=== PATIENT | male | born 1980 | race Two or more races ===

== ENCOUNTER 2024-08-15 18:39 | Emergency (ER) | payer MEDICAID, OTHER ==
[~2024-08-15] VITALS: Ht 182.9 cm; Wt 143.0 kg
--- NOTE | 2024-08-15 19:13 | ED.PDOC ---
Psychiatric HPI Comments 44 y/o M, presents to the ED for CC of mental health/ETOH. Patient states, that he has been having suicidal ideations x1day. 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 Patient endorses, drinking x4 tall cans of beer and having been binge drinking since Monday (08/11/24). Patient denies visual hallucinations, homicidal ideations, any prior suicidal attempt or plan. No other symptoms or modifying factors present at this time. Time Seen by MD: 19:10 Reviewed Notes: Nurses Notes, Medications, Allergies Information Source: Patient Mode of Arrival: Ambulatory Severity: Able to Care for Self Severity of Pain: None Severity of Mental Status: Severe Severity of Symptoms: Severe Timing: Hours Duration: Since onset Presents with: Suicidal Ideation, Alcohol Intoxication Ingestion: ETOH Current substance abuse: ETOH Stressors: None History of: None Location: None Location of pain or injury: None Associated signs and symptoms: ETOH Past Medical History PAST MEDICAL HISTORY: Denies Surgical History: Denies all surgeries Family History Family History: Unknown Social History Smoker: Non-Smoker Alcohol: Heavy Drugs: Denies Drug Use Lives In: Home Constitutional: denies: chills, diaphoresis, fatigue, fever, malaise, sweats, weakness, others EENTM: denies: blurred vision, double vision, ear bleeding, ear discharge, ear drainage, ear pain, ear ringing, eye pain, eye redness, hearing loss, mouth pain, mouth swelling, nasal discharge, nose bleeding, nose congestion, nose pain, photophobia, tearing, throat pain, throat swelling, voice changes, others Respiratory: denies: cough, hemoptysis, orthopnea, SOB at rest, shortness of breath, SOB with excertion, stridor, wheezing, others Cardiovascular: denies: chest pain, dizzy spells, diaphoresis, Dyspnea on e xertion, edema, irregular heart beat, left arm pain, lightheadedness, palpitations, PND, syncope, others Gastrointestinal: denies: abdomen distended, abdominal pain, blood streaked bowels, constipated, diarrhea, dysphagia, difficulty swallowing, hematemesis, melena, nausea, poor appetite, poor fluid intake, rectal bleeding, rectal pain, vomiting, others Genitourinary: denies: burning, dysuria, flank pain, frequency, hematuria, incontinence, penile discharge, penile sore, pain, testicle pain, testicle swelling, urgency, others Neurological: denies: dizziness, fainting, headache, left sided numbness, left sided weakness, numbness, paresthesia, pre-existing deficit, right sided numbness, right sided weakness, seizure, speech problems, tingling, tremors, weakness, others Musculoskeletal: denies: back pain, gout, joint pain, joint swelling, muscle pain, muscle stiffness, neck pain, others Integumetry: denies: bruises, change in color, change in hair/nails, dryness, laceration, lesions, lumps, rash, wounds, others Allergic/Immunocompromised: denies: Difficulty Healing, Frequent Infections, Hives, Itching, others Hematologic/Lymphatic: denies: anemia, blood clots, easy bleeding, easy bruising, swollen glands, others Endocrine: denies: excessive hunger, excessive sweating, excessive thirst, excessive urination, flushing, intolerance to cold, intolerance to heat, unexplained weight gain, unexplained weight loss, others Psychiatric: reports: suicidal; denies: anxiety, bipolar disorder, depression, hopeless, panic disorder, schizophrenia, sleepless, others Physical Exam General Appearance: No Apparent Distress, Normal HEENT: Normal ENT Inspection, Pharynx Normal, TMs Normal Neck: Full Range of Motion, Non-Tender, Normal, Normal Inspection Respiratory: Chest Non-Tender, Lungs Clear, No Accessory Muscle Use, No Respiratory Distress, Normal Breath Sounds Cardiovascular: No Edema, No JVD, No Murmur, No Gallop, Normal Peripheral Pulses, Regular Rate/Rhythm Breast Exam: Deferred Gastrointestinal: No Organomegaly, Non Tender, No Pulsatile Mass, Normal Bowel Sounds, Soft Genitalia: Deferred Pelvic: Deferred Rectal: Deferred Extremities: No calf tenderness, Normal capillary refill, Normal inspection, Normal range of motion, Non-tender, No pedal edema Musculoskeletal : Apperance: Normal Neurologic: Depressed Affect Cerebellar Function: Normal Reflexes: Normal Skin: Dry, Normal Color, Warm Lymphatic: No Adenopathy Was a procedure done? Was a procedure done?: No Psych Differential Dx Psych. Differential Dx: Anxiety, Depression, Hopeless OD Differential Dx: Alcohol Abuse X-Ray, Labs, Meds, VS Vital Signs Date Time Temp Pulse Resp B/P (MAP) Pulse Ox O2 Delivery O2 Flow Rate FiO2 4/3/25 19:35 98.1 96 20 134/104 (114) 96 98.1 08/15/24 19:35 96 20 96 Room Air* 0 21 08/15/24 19:10 98.1 96 20 134/104 (114) 96 98.1 Lab Test 08/15/24 19:25 Range/Units White Blood Count 12.5 H 4.4-10.8 10^3/uL Red Blood Count 5.29 4.5-5.90 10^6/uL Hemoglobin 13.9 13.5-17.5 g/dL Hematocrit 41.3 41.0-53.0 % Mean Corpuscular Volume 78.1 L 80.0-100.0 fL Mean Corpuscular Hemoglobin 26.2 L 28.0-32.0 pg Mean Corpuscular Hemoglobin Concent 33.5 32.0-36.0 g/dL Red Cell Distribution Width 15.8 H 11.8-14.3 % Platelet Count 272 140-450 10^3/uL Mean Platelet Volume 8.8 6.9-10.8 fL Neutrophils (%) (Auto) 47.5 37.0-80.0 % Lymphocytes (%) (Auto) 43.5 10.0-50.0 % Monocytes (%) (Auto) 6.0 0.0-12.0 % Eosinophils (%) (Auto) 2.8 0.0-7.0 % Basophils (%) (Auto) 0.2 0.0-2.0 % Neutrophils # (Auto) 5.9 1.6-8.6 10 ^3/uL Lymphocytes # (Auto) 5.4 0.4-5.4 10 ^3/uL Monocytes # (Auto) 0.7 0-1.3 10 ^3/uL Eosinophils # (Auto) 0.3 0-0.8 10 ^3/uL Basophils # (Auto) 0 0-0.2 10 ^3/uL Nucleated Red Blood Cells 0.1 % Sodium Level 140 136-145 mmol/L Potassium Level 3.6 3.5-5.1 mmol/L Chloride Level 108 H 98-107 mmol/L Carbon Dioxide Level 19 L 20-31 mmol/L Anion Gap 13 5-15 Blood Urea Nitrogen 7 L 9-23 mg/dL Creatinine 0.94 0.700-1.30 mg/dL Glomerular Filtration Rate Calc 103 >90 mL/min BUN/Creatinine Ratio 7.4 L 10.0-20.0 Serum Glucose 110 H 74-106 mg/dL Calcium Level 9.3 8.7-10.4 mg/dL Total Bilirubin 0.7 0.2-1.0 mg/dL Aspartate Amino Transferase (AST) 22 13-40 U/L Alanine Aminotransferase (ALT) 23 7-40 U/L Alkaline Phosphatase 88 46-116 U/L Total Protein 7.8 5.7-8.2 g/dL Albumin 4.7 3.2-4.8 g/dL Plasma/Serum Blood Alcohol 182.7 H <10 mg/dL Current Medications Medications (Trade) Dose Ordered Sig/Gigi Route Start Time Stop Time Status Last Admin Lorazepam (Ativan Inj) 1 mg ONCE ONCE IM 08/15/24 19:15 08/15/24 19:16 DC 08/15/24 19:16 X-Ray, Labs, Meds, VS Comment Spoke with Dr. Vidal, psychiatrist. He recommends gabapentin 200 mg t.i.d. and starting patient on Lexapro 10 mg q.day. states it may be good to observe patient while he chantel up. 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 Patient will be placed under ED observation. Time of 1ST Reevaluation: 19:40 Reevaluation 1ST: Unchanged Patient Education/Counseling: Diagnosis, Treatment, Need For Follow Up (Follow up in the emergency department in the next 24-48 hours if symptoms worsen. It was advised to follow up with your primary care doctor in the next 3-4 days for further evaluation.) Family Education/Counseling: No Family Present Assigned to Dr. Dawn Change of Shift?: Yes Departure 1 Departure Time of Disposition: 00:10 Impression: Primary Impression: Intoxication Additional Impression: Depression Qualified Codes: F32.2 - Major depressive disorder, single episode, severe without psychotic features Disposition: 30 STILL A PATIENT Condition: Stable Discharged With: Self Critical Care Note Critical Care Time?: No Stability Stability form required: No Heart Score Heart Score: Heart Score Response (Comments) Value History N/A 0 EKG N/A 0 Age N/A 0 Risk Factors N/A 0 Troponin N/A 0 Total 0 I personally scribed for DYAN ABDALLA ([facility]) on 08/15/24 at 19:13. Electronically submitted by Dionne Zaragoza ([email or web address]). I personally scribed for DYAN ABDALLA [employer]INE SET UP OPERATOR ([facility]) on 08/15/24 at 19:21. Electronically submitted by Dionne Zaragoza ([email or web address]). I personally scribed for DYAN ABDALLA [employer] MACHINE SET UP OPERATOR ([facility]) on 08/15/24 at 20:03. Electronically submitted by Dionne Zaragoza ([email or web address]). DYAN ABDALLA Aug 15, 2024 19:13
[2024-08-15] MEDS: LORazepam 2MG/ML-1ML VIAL IM ONE (19:16)
[2024-08-15 19:35] VITALS: BP 134/104; PULSE 96; RESP 20; TEMP 98.1; O2SAT 96
[2024-08-15 19:36] LABS: Basophils # (auto) 0 10 ^3/uL (0-0.2); Basophils % (auto) 0.2 % (0.0-2.0); Eosinophils # (auto) 0.3 10 ^3/uL (0-0.8); Eosinophils % (auto) 2.8 % (0.0-7.0); Hematocrit 41.3 % (41.0-53.0); Hemoglobin 13.9 g/dL (13.5-17.5); Lymphocytes # (auto) 5.4 10 ^3/uL (0.4-5.4); Lymphocytes % (auto) 43.5 % (10.0-50.0); Mean Corpuscular Hemoglobin 26.2 pg (28.0-32.0); Mean Corpuscular Hgb Conc. 33.5 g/dL (32.0-36.0); Mean Corpuscular Volume 78.1 fL (80.0-100.0); Monocytes # (auto) 0.7 10 ^3/uL (0-1.3); Neutrophils # (auto) 5.9 10 ^3/uL (1.6-8.6); Neutrophils % (auto) 47.5 % (37.0-80.0); Nucleated Red Blood Cells % 0.1 %; Platelet Count (auto) 272 10^3/uL (140-450); Red Blood Cells 5.29 10^6/uL (4.5-5.90); Red Cell Distribution Width 15.8 % (11.8-14.3); White Blood Cell 12.5 10^3/uL (4.4-10.8)
[2024-08-15 19:54] LABS: Alanine Aminotransferase 23 U/L (7-40); Albumin 4.7 g/dL (3.2-4.8); Alkaline Phosphatase 88 U/L (46-116); Anion Gap 13 (5-15); Aspartate Aminotransferase 22 U/L (13-40); BUN/Creatinine Ratio 7.4 (10.0-20.0); Bilirubin, Total 0.7 mg/dL (0.2-1.0); Calcium 9.3 mg/dL (8.7-10.4); Potassium 3.6 mmol/L (3.5-5.1); Sodium 140 mmol/L (136-145); Total Protein 7.8 g/dL (5.7-8.2)
[2024-08-15 20:32] LABS: Blood Urea Nitrogen 7 mg/dL (9-23); Carbon Dioxide 19 mmol/L (20-31); Chloride 108 mmol/L (98-107); Glucose 110 mg/dL (74-106)
[2024-08-15 21:30] LABS: Blood Alcohol 182.7 mg/dL (<10)
--- NOTE | 2024-08-16 00:06 | DVHINCON2 ---
Date of Service if different f: Aug 15, 2024 Time of Service: 23:35 Consultation ([facility]) Consulting Physician: DARYN PIPER MD Labs Laboratory Tests Test 08/15/24 19:25 White Blood Count 12.5 10^3/uL (4.4-10.8) Red Blood Count 5.29 10^6/uL (4.5-5.90) Hemoglobin 13.9 g/dL (13.5-17.5) Hematocrit 41.3 % (41.0-53.0) Mean Corpuscular Volume 78.1 fL (80.0-100.0) Mean Corpuscular Hemoglobin 26.2 pg (28.0-32.0) Mean Corpuscular Hemoglobin Concent 33.5 g/dL (32.0-36.0) Red Cell Distribution Width 15.8 % (11.8-14.3) Platelet Count 272 10^3/uL (140-450) Mean Platelet Volume 8.8 fL (6.9-10.8) Neutrophils (%) (Auto) 47.5 % (37.0-80.0) Lymphocytes (%) (Auto) 43.5 % (10.0-50.0) Monocytes (%) (Auto) 6.0 % (0.0-12.0) Eosinophils (%) (Auto) 2.8 % (0.0-7.0) Basophils (%) (Auto) 0.2 % (0.0-2.0) Neutrophils # (Auto) 5.9 10 ^3/uL (1.6-8.6) Lymphocytes # (Auto) 5.4 10 ^3/uL (0.4-5.4) Monocytes # (Auto) 0.7 10 ^3/uL (0-1.3) Eosinophils # (Auto) 0.3 10 ^3/uL (0-0.8) Basophils # (Auto) 0 10 ^3/uL (0-0.2) Nucleated Red Blood Cells 0.1 % Sodium Level 140 mmol/L (136-145) Potassium Level 3.6 mmol/L (3.5-5.1) Chloride Level 108 mmol/L (98-107) Carbon Dioxide Level 19 mmol/L (20-31) Anion Gap 13 (5-15) Blood Urea Nitrogen 7 mg/dL (9-23) Creatinine 0.94 mg/dL (0.700-1.30) Glomerular Filtration Rate Calc 103 mL/min (>90) BUN/Creatinine Ratio 7.4 (10.0-20.0) Serum Glucose 110 mg/dL (74-106) Calcium Level 9.3 mg/dL (8.7-10.4) Total Bilirubin 0.7 mg/dL (0.2-1.0) Aspartate Amino Transf (AST/SGOT) 22 U/L (13-40) Alanine Aminotransferase (ALT/SGPT) 23 U/L (7-40) Alkaline Phosphatase 88 U/L (46-116) Total Protein 7.8 g/dL (5.7-8.2) Albumin 4.7 g/dL (3.2-4.8) Plasma/Serum Blood Alcohol 182.7 mg/dL (<10) Appearance: Stated age Psychomotor activity: Restless Behavioral: Cooperative Eye contact: Appropriate Speech: WNL Affect: Mood Congruent Mood: Depressed, Dysphoric Thought processes: Linear/Goal-directed Thought content: WNL Suicidal ideations: Absent Homicidal ideations: Absent Orientation: Person, Place, Time, Situation Memory intact: Recent Intellect: Average Abstractability: WNL Concentration: Adequate Attention: Adequate Judgement: WNL Insight: Good Vitals Vital Signs Date Time Temp Pulse Resp B/P (MAP) Pulse Ox O2 Delivery O2 Flow Rate FiO2 08/15/24 19:35 98.1 96 20 134/104 (114) 96 98.1 08/15/24 19:35 Room Air* 0 21 Treatment plan discussed: With staff Medication adjusted: Yes Labs ordered: No Psychotherapy provided: Yes Type: Voluntary History of Present Illness Reason for Consult : psychiatric evaluation PER ED CATTLE ALLEY WORKER: 44 y/o M, presents to the ED for CC of mental health/ETOH. Patient states, that he has been having suicidal ideations x1day. 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 Patient endorses, drinking x4 tall cans of beer and having been binge drinking since Monday (08/11/24). Patient denies visual hallucinations, homicidal ideations, any prior suicidal attempt or plan. No other symptoms or modifying factors present at this time. PSYCHIATRIST HPI: The patient was seen and evaluated at [facility] via telepsychiatry platform. 44 yr old male reported that he thought about harming himself earlier today. He said he went to a rehab facility today and they sent him to the ED since he has had alcohol withdrawal seizures in the past. He said his depression has been going on and on and got really bad. He stated he doesn't feel like he wants to do something to himself. He said that he wanted to stop alcohol, but has had a seizure in the past. He noted that he has been drinking around 8-10 beers a day. He reported he was sober for two months from to May but has been drinking since May. He was prescribed gabapentin back in March when he first stopped. He reported that he is concerned about having withdrawal seizures and he intends to return to the rehab center when he is medically cleared to go there. He stated that his separation from his son's mother has led to being more depressed as his ex doesn't want him to see his son when he's drinking. He denied having suicidal ideation, plan or intent and denied having HI/AVH. Past Psychiatric History : No past hospitalizations, treatment or suicide attempts. Past Medical History : none Current medications: none NKDA Substance use: Alcohol-frequent binge drinking of beer. Denied use of other substances. Social History : Lives In [place] with mother. Never , has 7 yr old son who lives with his mother. 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 Diagnosis: ALCOHOL USE DISORDER; UNSPECIFIED DEPRESSIVE DISORDER Formulation: This 44 yr old male appears to suffer from alcohol use disorder severe with intoxication and depression. He is at high risk for severe alcohol withdrawal syndrome so observation with CIWA monitoring is recommended. He does not meet criteria for psychiatric hospitalization and would benefit from returning to the rehab center once he is medically cleared and a lower risk for withdrawal. He may benefit from starting gabapentin to help reduce anxiety and cravings and lexapro to help with depression. Plan: 1. Recommend ED observation for severe alcohol withdrawal syndrom and then transfer to rehab center once medically cleared. 2. Legal-voluntary. 3. Medications: recommend starting the following: Gabapentin 200mg TID for Lexapro 10mg qam for depression 4. Case discussed with ED CATTLE ALLEY WORKER [place]. 5. Please recontact psychiatry for further follow up or reevaluation. Assessment/Diagnosis/Plan Reviewed: Labs, Previous Orders DARYN PIPER MD Aug 15, 2024 23:36
[2024-08-16] MEDS ORDERED: ESCI10TA PO (00:14)
[2024-08-16] MEDS ORDERED: GABA-1308 PO (00:14)
[2024-08-16] MEDS: GABAPENTIN 100 MG CAP PO ONE (02:04)
[2024-08-16] MEDS: LORazepam 0.5 MG TAB PO ONE (02:04)
[2024-08-16] MEDS: ONDANSETRON ODT 4 MG TAB PO ONE (02:09)
== END 2024-08-16 07:53 | disposition left against medical advice (07) ==
LOC: ER 18:39
DX: F10.129 Alcohol abuse with intoxication, unspecified (principal); F32.9 Major depressive disorder, single episode, unspecified; Z79.899 Other long term (current) drug therapy; Y90.9 Presence of alcohol in blood, level not specified
CPT/HCPCS: 36415; 80053; 80320; 85025; 96372; 99284; J2060; Q0162